=== PATIENT | female | born 1950 | race Caucasian/White ===

== ENCOUNTER → 2018-09-27 | Outpatient (CLI) | payer MEDICARE, OTHER ==
[~2018-09-27] MED LIST: ACE500 PO; ASCO-182 PO; CALC-29 PO; CALC-936 PO; CHOL200074 PO; CYAN25004 PO; FEXO-72 PO; GLUC-198 PO; IBU200 PO; LOR10 PO; LUTE20CA11 PO; MULT-1335 PO; OMEG1CAP35 PO
--- NOTE | 2018-09-29 16:26 | RADIOLOGY IMAGING REPORT ---
FACILITY: [facility] PATIENT NAME: MARIO WATT : [id number] MR: [id number] V: [id number] EXAM DATE: ORDERING PHYSICIAN: OLIVIA ERVIN TECHNOLOGIST: Jeny Yarbrough PROCEDURE:BILATERAL DIGITAL SCREENING MAMMOGRAM WITH CAD ASSISTED INTERPRETATION & 3D TOMOSYNTHESIS COMPARISON:Prior mammograms 09/24/17, 09/09/17, 09/05/16, 12/28/13. INDICATIONS:screening for malignant neoplasm of breast FINDINGS: There are scattered areas of fibroglandular density throughout both breasts. The parenchymal pattern has remained stable allowing for difference in mammographic technique & patient positioning. There is no evidence of malignant appearing mass, malignant appearing calcifications or other secondary sign of malignancy in either breast. DIAGNOSTIC CATEGORY 1--NEGATIVE. RECOMMENDATIONS: ROUTINE MAMMOGRAM AND CLINICAL EVALUATION. IMPRESSION: BIRADS 1: Negative. No significant abnormality is seen. Dictated by: Izabela Lala M.D. on 09/29/2018 at 9:43 Transcribed by: YUE on 09/29/2018 at 9:48 Approved by: Izabela Lala M.D. on 09/29/2018 at 16:25 [facility]
== END ==
LOC: MAMO 04:05
PROVIDERS: ATTEND Family Medicine
DX: Z12.31 Encounter for screening mammogram for malignant neoplasm of breast (principal); Z80.3 Family history of malignant neoplasm of breast
CPT/HCPCS: 77063; 77067